=== PATIENT | female | born 1995 | race Caucasian/White ===

== ENCOUNTER 2020-08-01 13:02 | Emergency (ER) | payer OTHER ==
[~2020-08-01] VITALS: Ht 162.6 cm; Wt 52.3 kg
[2020-08-01 13:08] VITALS: BP 132/82; TEMP 98
[2020-08-01] MEDS ORDERED: PRENATAL TABLET PO (13:32)
[2020-08-01 13:49] LABS: COLLECTION METHOD CATHETER
[2020-08-01 13:56] LABS: BASO % 0.4 % (0.0-2.0); EOS # 0.2 (0.0-0.7); EOS % 2.4 % (0-4.0); GRAN # 6.3 (1.4-6.5); HEMATOCRIT 39.1 % (37.0-47.0); HEMOGLOBIN 13.6 g/dl (12.5-16.0); LYMPH # 2.7 (1.2-3.4); LYMPH % 27.1 % (20.0-51.0); MEAN CELL VOLUME 88 fl (80.0-100.0); MEAN CORPUSCULAR HEMOGLOBIN 31 pg (27.0-31.0); MEAN CORPUSCULAR HGB CONC 35 g/dl (33.0-37.0); MEAN PLATELET VOLUME 10.5 fl (7.4-10.4); MONO # 0.6 (0.1-0.6); MONO % 5.8 % (1.7-9.3); PLATELET COUNT 322 K/mm3 (130-400); RED BLOOD COUNT 4.43 M/mm3 (4.10-5.30)
[2020-08-01 14:00] LABS: PROTHROMBIN TIME 10.8 SECONDS (9.7-12.8)
[2020-08-01 14:02] LABS: PH 8 (5-8); SQUAMOUS EPITHELIAL 0-2 /hpf; URINE APPEARANCE Clear; URINE BACTERIA Rare /hpf; URINE BILIRUBIN Negative (NEGATIVE); URINE BLOOD Negative (NEGATIVE); URINE COLOR Straw; URINE GLUCOSE Negative (NEGATIVE); URINE KETONE Negative (NEGATIVE); URINE LEUKOCYTE ESTERASE Negative (NEGATIVE); URINE NITRATE Negative (NEGATIVE); URINE PROTEIN(semi-quant) Negative (NEGATIVE); URINE RBC 0-2 /hpf; URINE UROBILINOGEN Negative (NEGATIVE)
[2020-08-01 14:03] LABS: BILIRUBIN,TOTAL 0.4 mg/dL (0.0-1.0); CALCIUM 10.2 mg/dL (8.4-10.2); CREATININE, serum 0.49 (0.52-1.25); POTASSIUM 3.6 mmol/L (3.4-5.0); TOTAL PROTEIN 7.7 gm/dL (6.4-8.2)
[2020-08-01 16:08] VITALS: PULSE 88
== END 2020-08-01 16:08 | disposition home or self-care (01) ==
LOC: COL.ER 13:02
PROVIDERS: Physician Assistant
DX: O20.8 Other hemorrhage in early pregnancy (principal); Z3A.08 8 weeks gestation of pregnancy
CPT/HCPCS: J7030

== ENCOUNTER 2021-02-27 19:57 | Outpatient (CLI) | payer OTHER ==
[~2021-02-27] VITALS: Ht 162.6 cm; Wt 64.5 kg
[~2021-02-27 19:57] MED LIST: PRENATAL TABLET PO
--- NOTE | 2021-02-27 20:05 | NUR ---
G2L0. 38.2. Ambulatory to LDR 5 with spouse. Clean gown on. EFM and TOCO explained and applied. Pt states she thinks her water broke this morning. states " there was a 1/4 cup of fluid this morning on my underwear and throughout the day I have had teaspoon sized spots on my underwear." Pt reports mild cramping the past couple days. Reports good movement. Denies vaginal bleeding. SVE FT/50/-2. Amniotrace X2 negative. No amniotic fluid noted to exam glove. Plan of care explained. Call light within reach. 2015: call and updated on pts status. See physican notifcation. Pt updated on new orders.
[2021-02-27 20:15] VITALS: BP 134/79; PULSE 85; TEMP 98.4
--- NOTE | 2021-02-27 20:35 | NUR ---
Discharge instructions reviewed with patient and spouse. Patient discharged home at 2034.
== END 2021-02-27 20:35 | disposition home or self-care (01) ==
LOC: LDRO 19:57 → LDR 20:05 → LDRO 20:35
DX: O42.92 Full-term premature rupture of membranes, unspecified as to length of time between rupture and onset of labor (principal); Z3A.38 38 weeks gestation of pregnancy
CPT/HCPCS: OP

== ENCOUNTER 2021-03-12 07:05 | Inpatient (IN) | payer OTHER ==
[~2021-03-12] VITALS: Ht 162.6 cm; Wt 64.5 kg
--- NOTE | 2021-03-12 21:35 | NUR ---
PT TO UNIT AMBULATORY WITH SPOUSE FOR SCHEDULED CYTOTEC INDUCTION. ORIENTED TO ROOM, CHANGED INTO GOWN, EFMX2 APPLIED, VS OBTAINED.
[2021-03-12 22:30] VITALS: BP 127/78; PULSE 88
[2021-03-12 23:00] VITALS: BP 123/78; PULSE 78; TEMP 98.1
[2021-03-12 23:30] VITALS: BP 116/81; PULSE 70
--- NOTE | 2021-03-12 23:35 | NUR ---
LATE DECEL AT 2322 DROPPING INTO THE 60'S. PT TURNED TO RIGHT LATERAL WITH NO IMPROVEMENT, TURNED TO LEFT LATERAL WITH NO IMPROVEMENT, O2 ON VIA FACEMASK AT 10L. THEN TURN TO KNEE CHEST, FHT'S UP TO BASELINE OF 135. DECELERATION LASTED APPROXIMATLEY 3.5 MINUTES. AT 2335 PT WAS REPOSITIONED INTO HIGH FOWLERS WITH LEFT WEDGE, O2 DC'D
[2021-03-13] VITALS (47 sets, daily range): BP systolic 95–136; BP diastolic 57–93; PULSE 59–100; TEMP 97.4–98.5
[2021-03-13 00:04] LABS: BASO % 0.3 % (0.0-2.0); EOS # 0.1 (0.0-0.7); EOS % 0.9 % (0-4.0); GRAN # 5.8 (1.4-6.5); GRAN % 67.6 % (42.2-75.2); HEMOGLOBIN 11.5 g/dl (12.5-16.0); LYMPH # 1.9 (1.2-3.4); LYMPH % 21.8 % (20.0-51.0); MEAN CELL VOLUME 92 fl (80.0-100.0); MEAN CORPUSCULAR HEMOGLOBIN 31 pg (27.0-31.0); MEAN CORPUSCULAR HGB CONC 33 g/dl (33.0-37.0); MEAN PLATELET VOLUME 12.8 fl (7.4-10.4); MONO # 0.7 (0.1-0.6); MONO % 8.5 % (1.7-9.3); PLATELET COUNT 179 K/mm3 (130-400); RED BLOOD COUNT 3.76 M/mm3 (4.10-5.30); REDCELL DISTRIBUTION WIDTH-CV 14.7 % (11.5-14.5)
[2021-03-13 00:11] LABS: HEMATOCRIT 34.4 % (37.0-47.0)
--- NOTE | 2021-03-13 04:30 | NUR ---
PT AMBULATING IN HALLWAYS PER REQUEST, CATEGORY 1 STRIP PRIOR TO AMBULATION, UNABLE TO TRACE TOCO/EFM WHILE UP IN HALLWAYS, WILL PLACE PT BACK ON CONTINUOUS MONITORING WHEN SHE RETURNS TO ROOM, REQUESTING TO SIT UP ON BIRTHING BALL WHEN SHE RETURNS SHE IS "UNCOMFORTABLE LYING IN BED"
[2021-03-13] MEDS ORDERED: TYLENOL 500MG500 MG PO (05:41)
--- NOTE | 2021-03-13 06:21 | NUR ---
REPORT TO PRESTON HUNT RN
--- NOTE | 2021-03-13 06:55 | NUR ---
0620: This RN takes over care for stable, undelivered pt. Pt. states she has no questions/concerns. Will monitor pt. and strip
--- NOTE | 2021-03-13 10:21 | NUR ---
EPIDURAL: 0830: SERGEY SPENCER AT BS FOR EPIDURAL 0833: TO COMPLETED PT. SITTING UP AT SIDE OF BED. BREATHING THROUGH CTX. 0836: SINGLE SHOT. BP CYCLING EVERY 2MIN (SEE VITAL SIGNS) PT. LAID SUPINE AND EXPLAINED PROCESS OF EPIDURAL. NO QUESTIONS/CONCERNS AT THIS TIME.
--- NOTE | 2021-03-13 10:31 | NUR ---
FHT STRIP: 0900: BROKEN STRIP NOTED. 130S BASELINE, MODERATE VARIABILITY, 15X15 ACCELS, VARIABLES, EARLYS, LATE DECELERATIONS NOTED. 0915: REOCCURENT DECELERATIONS NOTED. BASELINE HEART RATE IS 125BPM, DECELERATIONS TO 55-60S NOTED. PITOCIN OFF AT 0902. TURN TO LEFT LATERAL W/ NO IMPROVEMENT. RIGHT LATERAL WITH NO IMPROVEMENT. TURNED TO HANDS AND KNEES WITH RETURN TO BASELINE.
--- NOTE | 2021-03-13 18:21 | NUR ---
REPORT GIVEN TO MISTY RN OF STABLE PT.
[2021-03-14 03:00] VITALS: BP 111/69; PULSE 83; TEMP 97.4
[2021-03-14 09:20] VITALS: BP 126/73; PULSE 102; TEMP 97.8
[2021-03-14 09:35] LABS: HEMATOCRIT 28.8 % (37.0-47.0); HEMOGLOBIN 9.6 g/dl (12.5-16.0)
--- NOTE | 2021-03-14 16:11 | NUR ---
REPORT GIVEN TO GEREMIAS HEARD AT 1600
[2021-03-14 17:00] VITALS: BP 113/65; PULSE 76; TEMP 98.8
--- NOTE | 2021-03-14 17:00 | NUR ---
Assist patient with . Sns done per patient. Latches on well.
[2021-03-14 20:00] VITALS: BP 125/70; PULSE 83; TEMP 98.2
[2021-03-15 09:00] VITALS: BP 112/66; PULSE 102; TEMP 97.6
--- NOTE | 2021-03-15 10:02 | NUR ---
Initial visit; Parents thanked Radar Repairer for offering congratulations and God's blessings for the of their son. Radar Repairer thanked family for choosing [facility].
[2021-03-15] MEDS ORDERED: PERCOCET 325 MG1 TA2 PO (10:33)
[2021-03-15] MEDS ORDERED: IBU600 MG PO (10:33)
--- NOTE | 2021-03-15 13:00 | NUR ---
Discharge instructions and follow up care reviewed with pt and at the bedside. Both verbalized an understanding, agreed with the plan and state no questions or concerns at this time.
== END 2021-03-15 13:30 | disposition home or self-care (01) | DRG 788 ==
LOC: OB 07:05 → LDR 21:26 → OB 03-13 14:28
PROVIDERS: ADMIT Obstetrics & Gynecology
PROC: 10D00Z1 Extraction of Products of Conception, Low, Open Approach (ICD-10-PCS; principal; 2021-03-12)
PROC: 0UBMXZZ Excision of Vulva, External Approach (ICD-10-PCS; 2021-03-12)
DX: O76 Abnormality in fetal heart rate and rhythm complicating labor and delivery (principal); Z37.0 Single live birth; O69.81X0 Labor and delivery complicated by cord around neck, without compression, not applicable or unspecified; O48.0 Post-term pregnancy; N90.89 Other specified noninflammatory disorders of vulva and perineum; O34.63 Maternal care for abnormality of vagina, third trimester; L82.1 Other seborrheic keratosis; O99.72 Diseases of the skin and subcutaneous tissue complicating childbirth; Z3A.40 40 weeks gestation of pregnancy
CPT/HCPCS: J0690; J1100; J2400; J2405; J2590; J3010; J3105; J7120